=== PATIENT | female | born 1950 | race Caucasian/White ===

== ENCOUNTER → 2017-01-09 | Outpatient (CLI) | payer BC ==
[~2017-01-09] MED LIST: ALLEGRA30 MG PO; CALCIUM 600/VIT1 CAP; DUO-KAPS1 CAP; IRON TABLETS325 MG PO; PERCOCET 325 MG1 TA2 PO; VITAMIN B COMPL1 T16 PO
== END ==
LOC: MC.RAD 11:00
DX: Z12.31 Encounter for screening mammogram for malignant neoplasm of breast (principal); R92.8 Other abnormal and inconclusive findings on diagnostic imaging of breast

== ENCOUNTER → 2017-01-18 | Outpatient (CLI) | payer BC | LOC: MC.RAD 10:59 | DX: D48.62 Neoplasm of uncertain behavior of left breast (principal); Z80.3 Family history of malignant neoplasm of breast ==

== ENCOUNTER → 2017-01-24 | Outpatient (CLI) | payer BC | LOC: MC.RAD 08:30 | DX: R92.0 Mammographic microcalcification found on diagnostic imaging of breast (principal) ==

== ENCOUNTER → 2018-09-17 | Outpatient (CLI) | payer BC ==
[2018-09-17 10:27] LABS: BASO % 0.6 % (0.0-2.0); EOS # 0.1 (0.0-0.7); EOS % 1.4 % (0-4.0); GRAN # 2.2 (1.4-6.5); GRAN % 44.3 % (42.2-75.2); HEMATOCRIT 41.6 % (37.0-47.0); HEMOGLOBIN 13.7 g/dl (12.5-16.0); LYMPH # 2.1 (1.2-3.4); LYMPH % 43.4 % (20.0-51.0); MEAN CELL VOLUME 89 fl (80.0-100.0); MEAN CORPUSCULAR HEMOGLOBIN 29 pg (27.0-31.0); MEAN CORPUSCULAR HGB CONC 33 g/dl (33.0-37.0); MEAN PLATELET VOLUME 9.2 fl (7.4-10.4); MONO # 0.5 (0.1-0.6); MONO % 10.1 % (1.7-9.3); PLATELET COUNT 217 K/mm3 (130-400); RED BLOOD COUNT 4.66 M/mm3 (4.10-5.30); REDCELL DISTRIBUTION WIDTH-CV 13.5 % (11.5-14.5)
[2018-09-17 10:49] LABS: ERYTHROCYTE SEDIMENTATION RATE 10 mm/hr (0-30)
== END ==
LOC: COL.RAD 09:26
DX: T84.031A Mechanical loosening of internal left hip prosthetic joint, initial encounter (principal); Z96.642 Presence of left artificial hip joint
CPT/HCPCS: A9503

== ENCOUNTER → 2018-10-03 | Outpatient (CLI) | payer BC | LOC: MC.RAD 10:20 | DX: Z12.31 Encounter for screening mammogram for malignant neoplasm of breast (principal) ==

== ENCOUNTER → 2021-02-03 | Outpatient (CLI) | payer MEDICARE | LOC: MC.RAD 12:43 | DX: Z12.31 Encounter for screening mammogram for malignant neoplasm of breast (principal) ==

== ENCOUNTER → 2023-01-31 | Outpatient (CLI) | payer MEDICARE | LOC: MC.RAD 10:12 | DX: Z12.31 Encounter for screening mammogram for malignant neoplasm of breast (principal) ==